=== PATIENT | female | born 1990 | race Caucasian/White ===

== ENCOUNTER 2017-01-03 21:17 | Emergency (ER) | payer OTHER ==
[~2017-01-03] VITALS: Ht 165.1 cm; Wt 76.0 kg
[2017-01-03 22:29] VITALS: BP 116/75
[2017-01-03] MEDS ORDERED: LORAZEPAM 1MG TABLET PO ONE (23:00)
== END 2017-01-03 23:21 | disposition home or self-care (01) ==
LOC: ER 21:19
DX: R07.9 Chest pain, unspecified (principal); F41.9 Anxiety disorder, unspecified; F17.200 Nicotine dependence, unspecified, uncomplicated; R00.2 Palpitations
CPT/HCPCS: 93005; 99283